=== PATIENT | female | born 1940 | race Caucasian/White ===

== ENCOUNTER 2016-12-03 11:00 | Emergency (ER) | payer OTHER, MEDICARE ==
[~2016-12-03] VITALS: Ht 162.6 cm; Wt 125.0 kg
[~2016-12-03 11:00] MED LIST: ACIDOPHILUS1 EAC4 PO; ASPIR 8181 M1 PO; ATENOLOL100 MG PO; ATENOLOL50 MG PO; CYANOCOBALAM1000 MCG PO; LIPITOR40 MG PO; METFORMIN HCL1000 MG PO; PRESERVISION A1 EAC2 PO; VITAMIN D32000 UNI1 PO
[2016-12-03 14:58] VITALS: BP 106/68
[2016-12-03] MEDS ORDERED: PERCOCET 5/31 TABLET PO (15:07)
== END 2016-12-03 15:15 | disposition home or self-care (01) ==
LOC: EME 11:00
DX: S22.41XA Multiple fractures of ribs, right side, initial encounter for closed fracture (principal); W01.198A Fall on same level from slipping, tripping and stumbling with subsequent striking against other object, initial encounter; I10 Essential (primary) hypertension; E11.9 Type 2 diabetes mellitus without complications; Z79.84 Long term (current) use of oral hypoglycemic drugs; Z79.82 Long term (current) use of aspirin
CPT/HCPCS: 71101; 99281; 99284

== ENCOUNTER 2017-05-06 12:15 | Inpatient (IN) | payer OTHER, MEDICARE ==
[~2017-05-06] VITALS: Ht 160 cm; Wt 121.6 kg
[~2017-05-06 12:15] MED LIST changes: +PERCOCET 5/31 TABLET PO
[2017-05-06 13:50] LABS: HEMATOCRIT 38.2 % (36.0-46.0); HEMOGLOBIN 12.8 G/DL (11.9-15.5); MCH 32.2 PG (29.0-34.0); MCHC 33.5 G/DL (30.0-36.0); MCV 96.2 FL (83-99); PLATELET COUNT 258 K/uL (156-360); RBC DIS.WIDTH-CV 13.1 % (11.8-14.6); RBC DIS.WIDTH-SD 46.5 % (39-53); RED BLOOD COUNT 3.97 M/uL (3.80-5.20); WHITE BLOOD COUNT 17.2 K/uL (4.1-10.2)
[2017-05-06 14:00] LABS: CHLORIDE 99 mEq/L (99-109); POTASSIUM 4.7 mEq/L (3.7-5.4); SODIUM 132 mEq/L (136-147)
[2017-05-06 14:02] LABS: GLUCOSE 258 mg/dL (70-99)
[2017-05-06 14:06] LABS: CREATININE 2.6 mg/dL (0.6-1.3); GFR ESTIMATE (CALCULATED) 19 mL/min/
[2017-05-06 14:07] LABS: UREA NITROGEN (BUN) 63 mg/dL (9-23)
[2017-05-06] MEDS ORDERED: PREDNISONE20 MG PO (15:33)
[2017-05-06 15:39] LABS: TROP-I INTERPRETATION NEGATIVE; TROPONIN-I 0.02 ng/mL (0.0-0.30)
[2017-05-06] MEDS ORDERED: ROCEPHIN500 MG IM (15:40)
[2017-05-06] MEDS ORDERED: DUONEB 2.5-0.5 M3 ML AEROSOL (15:41)
[2017-05-06] MEDS ORDERED: ALBUTEROL2.5 MG/3 M IH (15:41)
[2017-05-06] MEDS ORDERED: VITAMIN B-1100 MG PO (15:42)
[2017-05-06 20:53] VITALS: BP 133/84
[2017-05-07 00:14] VITALS: BP 124/59
[2017-05-07 06:58] LABS: HEMATOCRIT 36.4 % (36.0-46.0); HEMOGLOBIN 11.5 G/DL (11.9-15.5); MCH 31.3 PG (29.0-34.0); MCHC 31.6 G/DL (30.0-36.0); MCV 98.9 FL (83-99); PLATELET COUNT 241 K/uL (156-360); RBC DIS.WIDTH-SD 47.6 % (39-53); RED BLOOD COUNT 3.68 M/uL (3.80-5.20); WHITE BLOOD COUNT 14.3 K/uL (4.1-10.2)
[2017-05-07 07:22] LABS: CHLORIDE 105 MEQ/L (99-109); GLUCOSE 240 mg/dL (70-99); HDL CHOLESTEROL 14 MG/DL (Desirable>=50); LDL CHOLESTEROL 62 mg/dL (Desirable<100); NON-HDL CHOLESTEROL 96 mg/dL (Desirable<160); POTASSIUM 4.3 MEQ/L (3.7-5.4); SODIUM 136 MEQ/L (136-147); TOTAL CHOLESTEROL 110 mg/dL (Desirable<200); TRIGLYCERIDES 170 MG/DL (Normal: <150); UREA NITROGEN (BUN) 60 mg/dL (9-23)
[2017-05-07 07:29] VITALS: BP 128/62
[2017-05-07 07:32] LABS: CREATININE 2.1 MG/DL (0.6-1.3); GFR ESTIMATE (CALCULATED) 24 mL/min/
[2017-05-07 08:29] LABS: THYROTROPIN (TSH) 0.78 MIU/L (0.4-5.5)
[2017-05-07 12:09] VITALS: BP 124/65
[2017-05-07 16:13] VITALS: BP 125/65
[2017-05-07 20:00] VITALS: BP 143/72
[2017-05-08] VITALS: BP 147/87
[2017-05-08 05:54] LABS: HEMATOCRIT 35.9 % (36.0-46.0); HEMOGLOBIN 11.4 G/DL (11.9-15.5); MCH 31.2 PG (29.0-34.0); MCHC 31.8 G/DL (30.0-36.0); MCV 98.4 FL (83-99); PLATELET COUNT 249 K/uL (156-360); RBC DIS.WIDTH-CV 12.9 % (11.8-14.6); RBC DIS.WIDTH-SD 46.5 % (39-53); RED BLOOD COUNT 3.65 M/uL (3.80-5.20); WHITE BLOOD COUNT 14.5 K/uL (4.1-10.2)
[2017-05-08 06:11] LABS: CHLORIDE 106 MEQ/L (99-109); CREATININE 1.7 MG/DL (0.6-1.3); GFR ESTIMATE (CALCULATED) 31 mL/min/; GLUCOSE 234 mg/dL (70-99); POTASSIUM 4.5 MEQ/L (3.7-5.4); SODIUM 140 MEQ/L (136-147); UREA NITROGEN (BUN) 62 mg/dL (9-23)
[2017-05-08 09:40] LABS: HEMOGLOBIN A1c (GLYCOHEMOGLOB) 7.4 % (Below 5.7)
[2017-05-08 10:21] VITALS: BP 155/73
[2017-05-08 16:35] VITALS: BP 149/80
[2017-05-09] VITALS: BP 156/89
[2017-05-09 05:41] LABS: HEMATOCRIT 37.5 % (36.0-46.0); HEMOGLOBIN 11.7 G/DL (11.9-15.5); MCH 30.8 PG (29.0-34.0); MCHC 31.2 G/DL (30.0-36.0); MCV 98.7 FL (83-99); PLATELET COUNT 282 K/uL (156-360); RBC DIS.WIDTH-CV 13.1 % (11.8-14.6); RBC DIS.WIDTH-SD 47.8 % (39-53); WHITE BLOOD COUNT 10.7 K/uL (4.1-10.2)
[2017-05-09 06:03] LABS: CHLORIDE 108 MEQ/L (99-109); CREATININE 1.3 MG/DL (0.6-1.3); GFR ESTIMATE (CALCULATED) 42 mL/min/; GLUCOSE 258 mg/dL (70-99); SODIUM 142 MEQ/L (136-147); UREA NITROGEN (BUN) 45 mg/dL (9-23)
[2017-05-09 08:03] VITALS: BP 194/92
[2017-05-09 14:40] VITALS: BP 166/82
[2017-05-09 15:55] VITALS: BP 188/88
[2017-05-09 17:00] VITALS: BP 171/81
[2017-05-09 17:49] VITALS: BP 146/91
[2017-05-10 00:09] VITALS: BP 142/86
[2017-05-10 06:06] LABS: CHLORIDE 104 MEQ/L (99-109); GFR ESTIMATE (CALCULATED) 57 mL/min/; GLUCOSE 265 mg/dL (70-99); POTASSIUM 4.7 MEQ/L (3.7-5.4); SODIUM 139 MEQ/L (136-147); UREA NITROGEN (BUN) 29 mg/dL (9-23)
[2017-05-10 06:08] LABS: BASOPHIL (%) 0.3 % (0-1); EOSINOPHIL (%) 0.1 % (0-5); HEMATOCRIT 38.6 % (36.0-46.0); HEMOGLOBIN 12.5 G/DL (11.9-15.5); IMMATURE GRANULOCYTE (%) 2.1 % (0.0-0.7); LYMPHOCYTE (%) 11.6 % (15-42); LYMPHOCYTE COUNT 1.4 K/uL (1.0-2.8); MCH 31.7 PG (29.0-34.0); MCHC 32.4 G/DL (30.0-36.0); MONOCYTE (%) 4.8 % (3-12); MONOCYTE COUNT 0.6 K/uL (0-0.8); NEUTROPHIL (%) 81.1 % (45-76); NEUTROPHIL COUNT 9.6 K/uL (1.8-6.4); PLATELET COUNT 306 K/uL (156-360); RBC DIS.WIDTH-CV 12.9 % (11.8-14.6); RBC DIS.WIDTH-SD 46.6 % (39-53); RED BLOOD COUNT 3.94 M/uL (3.80-5.20); WHITE BLOOD COUNT 11.8 K/uL (4.1-10.2)
[2017-05-10 08:12] VITALS: BP 129/71
[2017-05-10 16:13] VITALS: BP 128/66
[2017-05-11 00:05] VITALS: BP 155/94
[2017-05-11 04:54] VITALS: BP 165/82
[2017-05-11 05:44] LABS: BASOPHIL (%) 0.3 % (0-1); EOSINOPHIL (%) 0 % (0-5); HEMATOCRIT 38.7 % (36.0-46.0); HEMOGLOBIN 12.6 G/DL (11.9-15.5); IMMATURE GRANULOCYTE (%) 2.4 % (0.0-0.7); LYMPHOCYTE (%) 10.4 % (15-42); LYMPHOCYTE COUNT 1.2 K/uL (1.0-2.8); MCH 31.7 PG (29.0-34.0); MCHC 32.6 G/DL (30.0-36.0); MCV 97.5 FL (83-99); MONOCYTE (%) 2.6 % (3-12); MONOCYTE COUNT 0.3 K/uL (0-0.8); NEUTROPHIL (%) 84.3 % (45-76); NEUTROPHIL COUNT 9.5 K/uL (1.8-6.4); PLATELET COUNT 313 K/uL (156-360); RBC DIS.WIDTH-CV 12.7 % (11.8-14.6); RBC DIS.WIDTH-SD 45.9 % (39-53); RED BLOOD COUNT 3.97 M/uL (3.80-5.20); WHITE BLOOD COUNT 11.3 K/uL (4.1-10.2)
[2017-05-11 06:07] LABS: CHLORIDE 103 MEQ/L (99-109); CREATININE 1.1 MG/DL (0.6-1.3); GFR ESTIMATE (CALCULATED) 51 mL/min/; GLUCOSE 320 mg/dL (70-99); POTASSIUM 4.7 MEQ/L (3.7-5.4); SODIUM 140 MEQ/L (136-147); UREA NITROGEN (BUN) 36 mg/dL (9-23)
[2017-05-11 08:13] VITALS: BP 175/70
[2017-05-11 17:51] VITALS: BP 128/84; BP 139/84
[2017-05-12 00:10] VITALS: BP 170/75
[2017-05-12 05:55] LABS: BASOPHIL (%) 0.2 % (0-1); EOSINOPHIL (%) 0.1 % (0-5); HEMOGLOBIN 12.2 G/DL (11.9-15.5); IMMATURE GRANULOCYTE (%) 1.6 % (0.0-0.7); LYMPHOCYTE (%) 11.7 % (15-42); LYMPHOCYTE COUNT 1.8 K/uL (1.0-2.8); MCH 31.5 PG (29.0-34.0); MCHC 32.1 G/DL (30.0-36.0); MCV 98.2 FL (83-99); MONOCYTE (%) 4.1 % (3-12); MONOCYTE COUNT 0.6 K/uL (0-0.8); NEUTROPHIL (%) 82.3 % (45-76); NEUTROPHIL COUNT 12.7 K/uL (1.8-6.4); PLATELET COUNT 329 K/uL (156-360); RBC DIS.WIDTH-CV 12.7 % (11.8-14.6); RBC DIS.WIDTH-SD 45.6 % (39-53); RED BLOOD COUNT 3.87 M/uL (3.80-5.20); WHITE BLOOD COUNT 15.5 K/uL (4.1-10.2)
[2017-05-12 06:19] LABS: CHLORIDE 103 MEQ/L (99-109); CREATININE 1.2 MG/DL (0.6-1.3); GFR ESTIMATE (CALCULATED) 47 mL/min/; GLUCOSE 253 mg/dL (70-99); POTASSIUM 4.7 MEQ/L (3.7-5.4); SODIUM 139 MEQ/L (136-147); UREA NITROGEN (BUN) 46 mg/dL (9-23)
[2017-05-12 07:30] VITALS: BP 128/88
[2017-05-12 11:28] VITALS: BP 142/82
[2017-05-12 15:56] VITALS: BP 122/65
[2017-05-12 19:35] VITALS: BP 127/68
[2017-05-13 04:27] VITALS: BP 169/82
[2017-05-13 06:38] LABS: BASOPHIL (%) 0.2 % (0-1); EOSINOPHIL (%) 0 % (0-5); HEMATOCRIT 38.7 % (36.0-46.0); HEMOGLOBIN 12.2 G/DL (11.9-15.5); IMMATURE GRANULOCYTE (%) 2.4 % (0.0-0.7); LYMPHOCYTE (%) 7.1 % (15-42); LYMPHOCYTE COUNT 0.9 K/uL (1.0-2.8); MCH 30.9 PG (29.0-34.0); MCHC 31.5 G/DL (30.0-36.0); MONOCYTE (%) 1.6 % (3-12); MONOCYTE COUNT 0.2 K/uL (0-0.8); NEUTROPHIL (%) 88.7 % (45-76); NEUTROPHIL COUNT 10.7 K/uL (1.8-6.4); PLATELET COUNT 298 K/uL (156-360); RBC DIS.WIDTH-CV 12.5 % (11.8-14.6); RBC DIS.WIDTH-SD 45.1 % (39-53); RED BLOOD COUNT 3.95 M/uL (3.80-5.20)
[2017-05-13 07:10] LABS: CHLORIDE 101 MEQ/L (99-109); CREATININE 1.2 MG/DL (0.6-1.3); GFR ESTIMATE (CALCULATED) 47 mL/min/; GLUCOSE 334 mg/dL (70-99); SODIUM 138 MEQ/L (136-147); UREA NITROGEN (BUN) 44 mg/dL (9-23)
[2017-05-13 07:42] VITALS: BP 142/78
[2017-05-13 07:59] VITALS: BP 142/78
[2017-05-13 16:47] VITALS: BP 156/90
[2017-05-13 23:39] VITALS: BP 152/80
[2017-05-14 06:48] LABS: BASOPHIL (%) 0.1 % (0-1); EOSINOPHIL (%) 0 % (0-5); HEMATOCRIT 39.7 % (36.0-46.0); HEMOGLOBIN 12.8 G/DL (11.9-15.5); IMMATURE GRANULOCYTE (%) 1.3 % (0.0-0.7); LYMPHOCYTE (%) 9.6 % (15-42); LYMPHOCYTE COUNT 1.7 K/uL (1.0-2.8); MCH 31.9 PG (29.0-34.0); MCHC 32.2 G/DL (30.0-36.0); MONOCYTE (%) 5.3 % (3-12); MONOCYTE COUNT 0.9 K/uL (0-0.8); NEUTROPHIL (%) 83.7 % (45-76); NEUTROPHIL COUNT 14.6 K/uL (1.8-6.4); PLATELET COUNT 323 K/uL (156-360); RBC DIS.WIDTH-CV 12.6 % (11.8-14.6); RBC DIS.WIDTH-SD 45.7 % (39-53); RED BLOOD COUNT 4.01 M/uL (3.80-5.20); WHITE BLOOD COUNT 17.5 K/uL (4.1-10.2)
[2017-05-14 07:05] LABS: CHLORIDE 104 MEQ/L (99-109); CREATININE 1.2 MG/DL (0.6-1.3); GFR ESTIMATE (CALCULATED) 47 mL/min/; POTASSIUM 4.7 MEQ/L (3.7-5.4); SODIUM 143 MEQ/L (136-147); UREA NITROGEN (BUN) 41 mg/dL (9-23)
[2017-05-14 07:09] LABS: GLUCOSE 117 mg/dL (70-99)
[2017-05-14 08:00] VITALS: BP 143/84
[2017-05-14 12:00] VITALS: BP 125/67
[2017-05-14 15:16] VITALS: BP 147/75
[2017-05-14 23:29] VITALS: BP 168/77
[2017-05-15 06:21] LABS: BASOPHIL (%) 0.3 % (0-1); BASOPHIL COUNT 0.1 K/uL (0-0.1); EOSINOPHIL (%) 0.7 % (0-5); EOSINOPHIL COUNT 0.1 K/uL (0-0.3); HEMATOCRIT 42.9 % (36.0-46.0); HEMOGLOBIN 13.2 G/DL (11.9-15.5); IMMATURE GRANULOCYTE (%) 1.4 % (0.0-0.7); LYMPHOCYTE (%) 21.2 % (15-42); LYMPHOCYTE COUNT 3.4 K/uL (1.0-2.8); MCH 30.6 PG (29.0-34.0); MCHC 30.8 G/DL (30.0-36.0); MCV 99.5 FL (83-99); MONOCYTE (%) 4.6 % (3-12); MONOCYTE COUNT 0.7 K/uL (0-0.8); NEUTROPHIL (%) 71.8 % (45-76); NEUTROPHIL COUNT 11.6 K/uL (1.8-6.4); PLATELET COUNT 387 K/uL (156-360); RBC DIS.WIDTH-CV 12.8 % (11.8-14.6); RBC DIS.WIDTH-SD 47.5 % (39-53); RED BLOOD COUNT 4.31 M/uL (3.80-5.20); WHITE BLOOD COUNT 16.1 K/uL (4.1-10.2)
[2017-05-15 06:42] LABS: CHLORIDE 106 MEQ/L (99-109); CREATININE 1.3 MG/DL (0.6-1.3); GFR ESTIMATE (CALCULATED) 42 mL/min/; SODIUM 143 MEQ/L (136-147); UREA NITROGEN (BUN) 37 mg/dL (9-23)
[2017-05-15 06:44] LABS: GLUCOSE 81 mg/dL (70-99)
[2017-05-15 07:25] VITALS: BP 184/88
[2017-05-15 15:14] VITALS: BP 160/76
[2017-05-16 00:03] VITALS: BP 175/82
[2017-05-16 06:50] LABS: BASOPHIL (%) 0.2 % (0-1); EOSINOPHIL COUNT 0.2 K/uL (0-0.3); HEMATOCRIT 39.2 % (36.0-46.0); HEMOGLOBIN 12.7 G/DL (11.9-15.5); IMMATURE GRANULOCYTE (%) 1.2 % (0.0-0.7); LYMPHOCYTE (%) 20.1 % (15-42); LYMPHOCYTE COUNT 2.3 K/uL (1.0-2.8); MCHC 32.4 G/DL (30.0-36.0); MCV 98.7 FL (83-99); MONOCYTE (%) 5.1 % (3-12); MONOCYTE COUNT 0.6 K/uL (0-0.8); NEUTROPHIL (%) 71.4 % (45-76); NEUTROPHIL COUNT 8.2 K/uL (1.8-6.4); PLATELET COUNT 272 K/uL (156-360); RBC DIS.WIDTH-SD 46.7 % (39-53); RED BLOOD COUNT 3.97 M/uL (3.80-5.20); WHITE BLOOD COUNT 11.5 K/uL (4.1-10.2)
[2017-05-16 07:15] LABS: CHLORIDE 107 MEQ/L (99-109); CREATININE 1.1 MG/DL (0.6-1.3); GFR ESTIMATE (CALCULATED) 51 mL/min/; POTASSIUM 4.4 MEQ/L (3.7-5.4); SODIUM 141 MEQ/L (136-147); UREA NITROGEN (BUN) 31 mg/dL (9-23)
[2017-05-16 07:16] LABS: GLUCOSE 114 mg/dL (70-99)
[2017-05-16 07:31] VITALS: BP 175/88
[2017-05-16 15:37] VITALS: BP 166/65
[2017-05-16 23:29] VITALS: BP 155/77
[2017-05-17 07:20] VITALS: BP 140/72
[2017-05-17] MEDS ORDERED: SPIRIVA18 MCG IH (11:26)
[2017-05-17] MEDS ORDERED: ADVAIR HFA120 INHALA IH (11:26)
[2017-05-17] MEDS ORDERED: PREDNISONE10 MG PO (11:26)
[2017-05-17] MEDS ORDERED: DUONEB 2.5-0.5 M3 ML AEROSOL ×2 (11:26→14:25)
[2017-05-17] MEDS ORDERED: GLIPIZIDE5 MG PO (11:26)
[2017-05-17] MEDS ORDERED: MUCINEX600 MG PO (11:26)
[2017-05-17] MEDS ORDERED: COMBIVENT RESPIM4 GM IH (11:43)
== END 2017-05-17 14:34 | disposition home health service (06) | DRG 193 ==
LOC: EME 12:15 → 5EAST 17:35 → EDOF 17:35 → 5SOUTH 17:35 → ENRESERV 17:36 → EDOF 17:42 → ENRESERV 18:51 → 5SOUTH 20:34
PROVIDERS: Emergency Medicine; Hospitalist; Internal Medicine
DX: J18.9 Pneumonia, unspecified organism (principal); J96.01 Acute respiratory failure with hypoxia; N17.9 Acute kidney failure, unspecified; I11.9 Hypertensive heart disease without heart failure; I50.30 Unspecified diastolic (congestive) heart failure; E11.649 Type 2 diabetes mellitus with hypoglycemia without coma; G47.33 Obstructive sleep apnea (adult) (pediatric); D72.829 Elevated white blood cell count, unspecified; E55.9 Vitamin D deficiency, unspecified; E53.8 Deficiency of other specified B group vitamins; E78.5 Hyperlipidemia, unspecified; K21.9 Gastro-esophageal reflux disease without esophagitis; E66.01 Morbid (severe) obesity due to excess calories; Z68.42 Body mass index [BMI] 45.0-49.9, adult; Z79.4 Long term (current) use of insulin; Z82.49 Family history of ischemic heart disease and other diseases of the circulatory system; Z85.828 Personal history of other malignant neoplasm of skin; Z86.010 Personal history of colon polyps; Z87.442 Personal history of urinary calculi; Z96.653 Presence of artificial knee joint, bilateral; Z98.51 Tubal ligation status
CPT/HCPCS: 71045; 71046; 71250; 71275; 80048; 80061; 81003; 82803; 82948; 83036; 83605; 83930; 84443; 84484; 85025; 85027; 87040; 87070; 87205; 87449; 87502; 87641; 93005; 93306; 94010; 94640; 94640 76; 94760; 94799; 99281; 99285; J0360; J0456; J0692; J0696; J1644; J1650; J1815; J1940; J2920; J2930; J7030; J7040; J7512